=== PATIENT | female | born 1955 | race Caucasian/White ===

== ENCOUNTER 2017-08-10 09:19 | Outpatient (CLI) | payer BC ==
[2017-08-10] MEDS ORDERED: Iopamidol 370 76% 100 ML VIAL ONE (09:33)
--- NOTE | 2017-08-10 11:45 | CT ---
CT ABDOMEN AND PELVIS WITH IV CONTRAST: Technique: Multiple axial tomograms were obtained through the abdomen and pelvis with IV enhancement . Oral contrast is administered. History: Abdominal pain, nausea x 3 days. FINDINGS: Images through the lung bases reveal a pleural based nodular density measuring 1.0 cm lateral right lung base. This may represent a focal area of rounded atelectasis, however, I cannot exclude a pulmo nary nodule. Follow up will be necessary. Liver, spleen, and pancreas are unremarkable. Adrenal glands unremarkable. Stomach and duodenum unremarkable. Kidneys appear unremarkable. No hydronephrosis. Review of the small bowel loops show mild nonspecific distention. There is suggestion of mural thick ening involving the jejunal loops. Ilial loops show nonspecific distention without significant dilat ation. Appendix is normal. The colon is unremarkable. No evidence of diverticulitis. Colonic mucosal lesion s are not excluded. Aorta is normal caliber. Images through the pelvis appear unremarkable. Uterus and adnexa are unremarkable. IMPRESSION: 1. Pleural based nodular density in the lateral right lung base. Focal rounded atelectasis is suspec nicolasa, however, suggest follow up. Suggest a noncontrast CT scan of chest on an elective basis to re-a ssess the lung fernandez. Suggest respiratory therapy prior to that study in an attempt to minimize the lung atelectasis. 2. There is nonspecific distention of small bowel loops with mild mural thickening in the jejunal lo ops. Findings could represent nonspecific enteritis. Other infectious and inflammatory small bowel e tiologies are not excluded. 3. If symptoms persist, consider dedicated small bowel exam. POS: [facility]
== END 2017-08-10 09:20 | disposition home or self-care (01) ==
LOC: MADCT 09:19
PROVIDERS: ATTEND Obstetrics & Gynecology
DX: R11.0 Nausea (principal); M05.79 Rheumatoid arthritis with rheumatoid factor of multiple sites without organ or systems involvement; R91.1 Solitary pulmonary nodule
CPT/HCPCS: 74177

== ENCOUNTER 2018-03-23 08:52 | Outpatient (CLI) | payer BC ==
[2018-03-23] MEDS ORDERED: Iopamidol 370 76% 100 ML VIAL ONE (11:19)
--- NOTE | 2018-03-23 12:44 | CT ---
ABDOMEN CT WITH AND WITHOUT CONTRAST: PELVIS CT WITH AND WITHOUT CONTRAST: HISTORY: Possible renal mass. COMPARISON: 08/10/2017 TECHNIQUE: Abdomen and pelvis CT are performed with and without IV contrast. Coronal reformatted images are sub mitted for interpretation. FINDINGS: ABDOMEN: Emphysematous changes in the lung bases. Scarring and atelectasis in the lung bases is not ed. Previously suggested nodular opacity in the right lower lobe is less evident on the current stud y. Normal heart size. No pericardial fluid. The descending thoracic aorta and abdominal aorta have a n ormal caliber. No periaortic fat stranding. Intrahepatic and extrahepatic portal vein is patent. S ymmetric attenuation of the psoas muscles. The liver, spleen, pancreas, and adrenal glands are unremarkable. No gastrohepatic, retrocrural, or periportal lymphadenopathy. No mesenteric mass, lymphadenopathy, free air, or free fluid. Limited evaluation of the alimentary canal due to lack of oral contrast administration. No evidence of bowel obstruction. The ileocecal junction is normal. Normal caliber appendix. Scattered fecal m aterial in a nondistended, nondilated colon. Occasional diverticula. No evidence of diverticulitis. Bilaterally, no hydronephrosis, nephrolithiasis, or perinephric fat stranding. There is symmetric en hancement of the kidneys. Subcentimeter hypodensities are too small to characterize. There is symme tric excretion into a nondistended intrarenal collecting system. Bilateral ureters have a normal shelia iber. No hydroureter, periureteral fat stranding, or ureterolithiasis. There is adequate contrast o pacification without filling defect in either ureter. PELVIS: No mass, lymphadenopathy, free air, or free fluid. The urinary bladder is unremarkable. Co ntrast is noted in the bladder. The uterus and adnexal structures are unremarkable. No lytic or blastic lesions. IMPRESSION: 1. No evidence of nephrolithiasis or obstructive uropathy. 2. No evidence of mass in either kidney. 3. Interval resolution of previously noted pleural-based nodule in the right lung base. POS: [facility]
== END 2018-03-23 08:53 | disposition home or self-care (01) ==
LOC: MADCT 08:52
DX: D72.829 Elevated white blood cell count, unspecified (principal); R91.1 Solitary pulmonary nodule
CPT/HCPCS: 36415; 74178; 82565

== ENCOUNTER 2020-08-06 14:10 | Outpatient (CLI) | payer BC ==
--- NOTE | 2020-08-06 14:27 | RAD ---
XR Chest Pa Lat STANDARD HISTORY: Rib pain on the left side COMPARISON: 12/12/2019 FINDINGS: The heart size is normal. The lungs are well expanded without focal areas of consolidation, pneumothorax or pleural effusions. Interval development of bronchiectatic changes are seen predominantly in the left lung. There is bron chial thickening in the left. Possible infection should be considered.
== END 2020-08-06 14:11 | disposition home or self-care (01) ==
LOC: MADRAD 14:10
PROVIDERS: ATTEND Registered Nurse
DX: R07.81 Pleurodynia (principal)
CPT/HCPCS: 71046